=== PATIENT | female | born 1935 | race Two or more races ===

== ENCOUNTER 2021-05-07 08:55 | Emergency (ER) | payer OTHER ==
[~2021-05-07] VITALS: Ht 170.2 cm; Wt 131.5 kg
[2021-05-07 10:26] LABS: Basophils # (auto) 0 10 ^3/uL (0-0.2); Basophils % (auto) 0.5 % (0.0-2.0); Eosinophils # (auto) 0.2 10 ^3/uL (0-0.8); Eosinophils % (auto) 4.4 % (0.0-7.0); Hematocrit 35.9 % (36.0-46.0); Lymphocytes # (auto) 0.9 10 ^3/uL (0.4-5.4); Lymphocytes % (auto) 16.8 % (10.0-50.0); Mean Corpuscular Hemoglobin 29.2 pg (28.0-32.0); Mean Corpuscular Hgb Conc. 33.3 g/dL (32.0-36.0); Mean Corpuscular Volume 87.6 fL (80.0-100.0); Monocytes # (auto) 0.5 10 ^3/uL (0-1.3); Monocytes % (auto) 8.2 % (0.0-12.0); Neutrophils # (auto) 3.9 10 ^3/uL (1.6-8.6); Neutrophils % (auto) 70.1 % (37.0-80.0); Red Cell Distribution Width 14.7 % (11.8-14.3); White Blood Cell 5.6 10^3/uL (4.4-10.8)
[2021-05-07 10:50] LABS: Albumin 2.9 g/dL (3.4-5.0); Calcium 8.7 mg/dL (8.5-10.1); Magnesium 2.6 mg/dL (1.6-2.6); Potassium 4.2 mmol/L (3.5-5.1)
[2021-05-07 10:55] LABS: BUN/Creatinine Ratio 13.6; Bilirubin, Total 0.4 mg/dL (0.2-1.0); Total Protein 6.7 g/dL (6.4-8.2)
[2021-05-07] MEDS ORDERED: IPRATROPIUM BROM 0.5 MG/2.5ML INH SOL NEB STA ×2 (15:00→18:57)
[2021-05-07] MEDS ORDERED: ALBUTEROL SULF 2.5 MG/0.5ML(0.5%) NEB SOLN NEB STA ×2 (15:00→18:57)
[2021-05-07 16:00] LABS: Urine Bacteria NONE SEEN /hpf (None Seen); Urine Blood Negative /uL (Negative); Urine Mucus FEW (None Seen); Urine Specific Gravity 1.018 (1.001-1.035); Urine WBC 10 /hpf (0 - 5)
[2021-05-07] MEDS ORDERED: ALPRAZolam 0.5 MG TAB PO ONE (20:30)
[2021-05-07] MEDS ORDERED: MORP30TA PO (21:14)
[2021-05-07] MEDS ORDERED: FURO1TAB33 PO (21:21)
[2021-05-07] MEDS ORDERED: LISI20TA28 PO (21:21)
[2021-05-07] MEDS ORDERED: SERT100T PO (21:21)
[2021-05-07] MEDS ORDERED: PRAM1TAB2 PO (21:21)
[2021-05-07] MEDS ORDERED: HYDR-4833 PO (21:21)
[2021-05-07] MEDS ORDERED: SERT50TA PO (21:21)
[2021-05-07] MEDS ORDERED: METF-372 PO (21:21)
[2021-05-08] MEDS ORDERED: MORPHINE SULF 15mg ER tab PO ONE (01:00)
[2021-05-08 01:05] VITALS: BP 166/84
== END 2021-05-08 01:28 | disposition short-term general hospital (02) ==
LOC: EDBD 08:55 → ER 08:55
DX: J18.9 Pneumonia, unspecified organism (principal); R06.00 Dyspnea, unspecified; J90 Pleural effusion, not elsewhere classified; J44.9 Chronic obstructive pulmonary disease, unspecified; Z20.822 Contact with and (suspected) exposure to COVID-19
CPT/HCPCS: 36415; 71045; 80053; 81001; 83735; 84484; 85025; 87426; 93005; 94640; 99285; J7644